=== PATIENT | male | born 1995 | race Two or more races ===

== ENCOUNTER 2018-01-22 10:44 | Emergency (ER) | payer OTHER ==
[~2018-01-22] VITALS: Ht 172.7 cm; Wt 86.2 kg
[~2018-01-22 10:44] MED LIST: ATIVAN0.5 MG ORAL; [UNRECOGNIZED DRUG - REMARK]
[2018-01-22 13:34] VITALS: BP 131/89
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
[2018-01-22 14:22] VITALS: BP 131/89
== END 2018-01-22 16:07 ==
LOC: EDUNIT# 10:44 → EDBD 10:44 → EMR 12:06
DX: R04.0 Epistaxis (principal); Y04.2XXA Assault by strike against or bumped into by another person, initial encounter; Y92.9 Unspecified place or not applicable; E11.9 Type 2 diabetes mellitus without complications; F84.0 Autistic disorder; Z88.8 Allergy status to other drugs, medicaments and biological substances
CPT/HCPCS: 99283